=== PATIENT | female | born 1935 | race Caucasian/White ===

== ENCOUNTER 2016-09-16 10:51 | Emergency (ER) | payer MEDICARE, BC, MEDICAID ==
[2016-09-16 11:15] VITALS: BP 162/72
[2016-09-16] MEDS ORDERED: Take Home: Ciprofloxacin 500 MG Tab, 2 Tab Pack PO ONE (11:24)
[2016-09-16] MEDS ORDERED: Take Home: Ciprofloxacin 500 MG Tab, 2 Tab Pack ONE (12:06)
--- NOTE | 2016-09-17 00:23 | ER ---
Date of Service: 09/16/2016 SUBJECTIVE: Chely presented to the emergency room with complaints of dysuria. The patient states that she has been experiencing this discomfort since yesterday. She states that she is also experiencing some low back pain. She states she has not been experiencing any fever or chills. No nausea or vomiting. She states that she does have a history of recurrent urinary tract infections. PAST MEDICAL HISTORY: 1. Recurrent UTI. 2. Hyperlipidemia. 3. Hypertension. 4. Diverticulosis. 5. Osteoporosis. 6. GERD. 7. Coronary artery disease. 8. Anxiety and depression. ALLERGIES: Sulfa, atorvastatin, and venlafaxine. MEDICATIONS: 1. Wellbutrin XL. 2. Simvastatin. 3. MiraLAX. 4. [place]-3 fish oil. 5. Nitro-Dur. 6. Toprol-XL. 7. Synthroid. 8. Furosemide. 9. Colace. 10.Adderall. 11.Prolia. 12.Cymbalta. 13.Vitamin B12. 14.Vitamin D3. 15.Calcium carbonate. 16.Aspirin. REVIEW OF SYSTEMS: General: No fever, chills, weakness, chest pain, or shortness of breath. Please see history of present illness. PHYSICAL EXAMINATION: General: This is an 80-year-old female patient, in no acute distress. Vital Signs: Blood pressure is 162/72, heart rate 60, temperature is 35.8, respiratory rate 16, O2 saturations 95%. Skin: Warm, pink, and dry. HEENT: Mouth, oral mucosa is moist. Lungs: Clear to auscultation. Heart: Regular rate and rhythm. Abdomen: Soft, nontender. There is no hepatosplenomegaly noted. There is no masses noted. Extremities: Without edema. Neurologic: The patient is alert and oriented, answers all questions appropriately. The patient's speech is fluent. Her gait is within normal limits. LABORATORY DATA: Urinalysis was obtained. She did have evidence of a small leukocyte esterase in her urine. She was negative for nitrites. Specific gravity was 1.015. She did have 100 protein, negative glucose and ketones, as well as bilirubin. ASSESSMENT: Urinary tract infection. PLAN: The patient was started on Cipro 500 mg 1 twice daily for 5 days. She was given stock from here in the hospital to get started today. Drink plenty of fluids. Follow up in the clinic in the next 10 to 14 days to ensure resolution of the infection. All questions were answered. MWK: 09/17/2016 00:03:35 MODL: 09/17/2016 00:15:01 /[id number]
--- NOTE | 2016-09-17 10:32 | ER ---
Date of Service: 09/16/2016 SUBJECTIVE: Chely presents emergency room with complaints of dysuria. She states that she began experiencing this early symptoms last evening. She states that she is also experiencing some low back pain. She states that the symptoms are similar to what she has experienced when she has had UTIs in the past. She states her last urinary tract infection was approximately 2 months ago. She states she is not experiencing any fever or chills. No nausea or vomiting. PAST MEDICAL HISTORY: 1. Frequent urinary tract infections. 2. Hyperlipidemia. 3. Hypertension. 4. Diverticulosis. 5. Osteoporosis. 6. GERD. 7. Coronary artery disease. 8. Anxiety. 9. Depression. 10.Chronic fatigue syndrome. 11.Diastolic CHF. 12.Hypothyroidism. 13.Lumbar stenosis. ALLERGIES: 1. Sulfa. 2. Atorvastatin. 3. Venlafaxine. REVIEW OF SYSTEMS: General: No fever or chills. HEENT: No sore throat, rhinorrhea, or congestion. Respiratory: No shortness of breath. Cardiac: Denies any substernal chest pain. No jaw, arm, neck, or back pain. GI: No nausea, vomiting, or diarrhea. No melena, hematochezia, or hematemesis. : Positive for dysuria and frequency as well as low back pain. PHYSICAL EXAMINATION: General: This is an 80-year-old female patient, in no acute distress. Vital Signs: Blood pressure is 162/72, heart rate is 60, temperature is 35.8, respiratory rate 16, O2 saturations 95%. Skin: Warm, pink, and dry. HEENT: Mouth, oral mucosa is moist. Lungs: Clear to auscultation. Heart: Regular rate and rhythm. Back: No CVA tenderness. Abdomen: Soft, nontender. Remainder of her physical examination is within normal limits. LABORATORY DATA: Urinalysis revealed moderate occult blood, trace of leukocyte esterase, specific gravity is 1.015. Negative for glucose and ketones as well as nitrates and bilirubin. ASSESSMENT: Urinary tract infection. PLAN: We will start the patient on Cipro 500 mg twice daily for 5 days. I would like her to follow up with her primary care provider in 7 to 10 days to ensure resolution of the infection. Drink plenty of fluids. Tylenol and ibuprofen for discomfort. All questions were answered. Return to the emergency room if she develops any lightheadedness, weakness, fatigue, worsening discomfort. MWK: 09/16/2016 12:00:44 MODL: 09/16/2016 13:21:33 /[id number]
== END 2016-09-16 11:32 | disposition home or self-care (01) ==
LOC: VM.ED 10:51
DX: N39.0 Urinary tract infection, site not specified (principal); K21.9 Gastro-esophageal reflux disease without esophagitis; I11.0 Hypertensive heart disease with heart failure; I50.30 Unspecified diastolic (congestive) heart failure; I25.10 Atherosclerotic heart disease of native coronary artery without angina pectoris; E03.9 Hypothyroidism, unspecified; M81.0 Age-related osteoporosis without current pathological fracture; M48.06 Spinal stenosis, lumbar region; Z88.8 Allergy status to other drugs, medicaments and biological substances
CPT/HCPCS: 81003; 99283; A9270

== ENCOUNTER 2016-10-11 16:48 | Observation (INO) | payer MEDICARE, BC, MEDICAID ==
[2016-10-11] MEDS ORDERED: Sodium Chloride 0.9% 10 ML Syringe FLUSH PRN (17:13)
[2016-10-11] MEDS ORDERED: Enoxaparin 40 MG/0.4 ML Syringe SUBCUT SCH (17:15)
[2016-10-11] MEDS ORDERED: Nitroglycerin 0.4 MG Tab.SL SL PRN (17:34)
[2016-10-11] MEDS ORDERED: Polyethylene Glycol 3350 Powder 17 GM Packet PO PRN (17:34)
[2016-10-11] MEDS ORDERED: ALPRAZolam 0.25 MG Tab PO PRN (18:20)
[2016-10-11] MEDS: Calcium Carbonate/Vitamin D3 1250 MG-200 Unit Tab PO SCH (18:57)
[2016-10-11] MEDS ORDERED: Acetaminophen 325 MG Tab PO PRN (19:44)
[2016-10-11] MEDS ORDERED: Docusate Sodium 100 MG Cap PO SCH (20:00)
[2016-10-11] MEDS ORDERED: Simvastatin 40 MG Tab PO SCH (20:00)
[2016-10-11] MEDS: Cholecalciferol (Vitamin D3) 1,000 Unit Tab PO SCH (20:17)
[2016-10-11] MEDS: Ascorbic Acid 500 MG Tab PO SCH (20:17)
[2016-10-11] MEDS: Cranberry 500 MG Cap PO SCH (20:17)
[2016-10-12] MEDS ORDERED: Levothyroxine 100 MCG Tab PO SCH (07:00)
[2016-10-12] MEDS: Cholecalciferol (Vitamin D3) 1,000 Unit Tab PO SCH (07:43)
[2016-10-12] MEDS: Cranberry 500 MG Cap PO SCH (07:43)
[2016-10-12] MEDS: Calcium Carbonate/Vitamin D3 1250 MG-200 Unit Tab PO SCH (07:43)
[2016-10-12] MEDS: Ascorbic Acid 500 MG Tab PO SCH (07:43)
[2016-10-12] MEDS ORDERED: Metoprolol Succinate 25 MG Tab.ER PO SCH (08:00)
[2016-10-12] MEDS ORDERED: Cyanocobalamin (Vitamin B12) 1,000 MCG Tab PO SCH (08:00)
[2016-10-12] MEDS ORDERED: BUPROPION 300 MG PO SCH (08:00)
[2016-10-12] MEDS ORDERED: Aspirin 81 MG Tab.EC PO SCH (08:00)
[2016-10-12] MEDS ORDERED: Furosemide 20 MG Tab PO SCH (08:00)
[2016-10-12] MEDS ORDERED: Nitroglycerin 0.4 MG/HR Transdermal Patch TRDERM SCH (08:00)
[2016-10-12] MEDS ORDERED: DULoxetine 30 MG Cap PO SCH (08:00)
[2016-10-12 10:16] VITALS: BP 150/71
--- NOTE | 2016-10-15 08:23 | HP ---
CHIEF COMPLAINT: Chest pain. HISTORY OF PRESENT ILLNESS: This is an 80-year-old female with known history of coronary artery disease, status post stenting last in 2005 with stents to the LAD and RCA. She had a catheterization in 2009, which showed patent stents and a Cardiolite test in 09/2015 that was normal. She was just not feeling well since yesterday, but really she admits she has not been feeling well for quite some time. She has had a lot of sweats and sweating episodes. She had similar problems last September. She has been following with Psychiatry and some psych med changes had helped in the past year, but she is feeling poorly again. She does suffer from severe anxiety and depression. Otherwise, she was a little short of breath today. She woke up at 6:45 with chest discomfort. She states she has been having it off and on. It is really lasted all day, but when she got the aspirin and nitroglycerin in the clinic, it went away, but then it started coming back again. She was tired, but went to her PT appointment. She was sweating and just did not look good. They checked her blood pressure and it was high, but when she got to the clinic, her blood pressure was better. She did feel nauseated this morning, but does not feel nauseated now. She has otherwise not been coughing or having any fever. Otherwise, the patient has been going to PT for her back pain. We recently started Neurontin for the sweating and pain, she is not sure if it really helped. ALLERGIES: Effexor, agitation caused; Lipitor causes myalgias; sulfa causes itching. MEDICATIONS: List is reviewed. She is on Cymbalta 90 mg daily; Neurontin 100 mg at bedtime; Adderall 25 mg daily in the morning; metoprolol 25 mg daily; Prolia; levothyroxine 100 mcg daily, recent TSH normal; MiraLax as needed for constipation; nitroglycerin 0.8 patch daily; Lasix 20 mg daily; Zocor 40 mg daily; B12 1000 mcg daily; aspirin 81 mg daily; vitamin D 1000 daily; nitroglycerin 0.4 as needed for chest pain; calcium; fish oil; stool softeners and cranberry tabs. PAST MEDICAL HISTORY: Skin cancer, squamous cell to her leg and hand; coronary artery disease as above; diastolic heart failure, mild; essential hypertension; hyperlipidemia; hypothyroidism; adjustment disorder with anxiety and depression; major depressive disorder, recurrent; lumbar stenosis; previous epidural steroid injections; neck pain with central stenosis of the cervical spine as well; diverticulosis and perforation in 2014; previous history of colon polyps; GERD; history of UTIs; atrophic vaginitis; knee arthritis, status post right knee replacement; lumbar disk herniation; osteoporosis, on Prolia. PAST SURGICAL HISTORY: Otherwise, surgically she has had appendectomy; C- section; cataracts; perforated colon surgery with colostomy, then reversal; total knee replacement on the right in 2016; previous skin biopsies. FAMILY HISTORY: Mother is along with her father, he had a stroke. She had a daughter who of lung cancer. Another brother is . SOCIAL HISTORY: She is . 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 She does not smoke or drink alcohol. REVIEW OF SYSTEMS: General: No weight changes. She has felt a little chills after some sweats, but no fevers. HEENT: No sore throat or trouble swallowing. Cardiac: She has had a chest discomfort. No palpitations. She did have some leg swelling about 10 days ago, went away after a few days. Respiratory: No cough. Little shortness of breath this morning, but it has resolved. GI: She is having no nausea, vomiting, diarrhea, or constipation currently, but she did have some diarrhea earlier in the week on the and then it came back a little yesterday otherwise. Musculoskeletal: She does have some chronic back pain, no changes there. Psychiatric: She has not had any change in her moods, but admits they have not been good. Otherwise, all systems reviewed and found to be negative unless otherwise stated. PHYSICAL EXAMINATION: Vital Signs: Her temperature 96.8, pulse 86, blood pressure 134/80, respiratory rate 22, O2 93 on room air. General: She is in no acute distress. Heart: Regular rate and rhythm, S1, S2 without murmur. Carotids are 2+ without bruits. Lungs: Lung sounds are clear to auscultation bilaterally without crackles or wheezes. Abdomen: Positive bowel sounds. Soft and nontender. Extremities: Warm and dry. No edema. Mental Status: She is alert. She is orientated x3. Psych: She does look moderately anxious. Blood pressure is rechecked by myself 122/80. We did repeat a 3rd nitroglycerin, she did not feel like that helped. She said it had no sizzle. Recheck blood pressure by the nurse a few minutes later was up into the 130s and 140s. Another nitroglycerin did help relieve the pain some, but she still had mild chest pain on transfer over to the hospital. Troponin returned negative 0.017 and BNP negative at 193. Other lab work from the clinic showed her white count normal at 6.7, hemoglobin 15.6, platelets 247. BMP showed glucose 108, BUN 15, creatinine 0.68, sodium 142, potassium 3.8, chloride 103, bicarb 28. TSH again on 09/26/2016 was normal at 1.2. EKG was a normal sinus rhythm, no ST changes. X-ray reviewed, no acute infiltrates now dictating. ASSESSMENT AND PLAN: 1. Chest pain with known history of coronary artery disease. We will rule her out with serial troponins. I will repeat one in 3 hours and then 3 hours after that. If these are negative, she will not need further troponins as she has been having chest pain since about 7:00 a.m. this morning. We will place her on telemetry. We will have nitroglycerin available if needed. We will continue her home medications. We will consider outpatient stress testing. Again, there could be some component of anxiety also related to her chest pain. 2. Severe anxiety and depression. She is following with Psychiatry. At this point, due to her chest pain, I am going to hold her Adderall. 3. Essential hypertension. We will continue her home medications. 4. Chronic back pain and lumbar disk disease. We will continue her Neurontin. 5. Excessive sweating. This has been an ongoing problem for her, especially in the summer and after showering. I have recommended she drink more water and I have adjusted medications to try to help with this, this seems to be quite frustrating for her. 6. History of diastolic heart failure, stable without any exacerbation. BNP was negative. PLAN: At this point, the patient will be admitted for observation status. We will repeat troponins. She will be on Lovenox 40 mg daily for DVT prophylaxis. MKA: 10/11/2016 17:12:41 MODL: 10/12/2016 00:04:07 /[id number]
--- NOTE | 2016-10-15 08:23 | DISCH ---
PRIMARY DISCHARGE DIAGNOSES: 1. Chest pain ruled out for myocardial infarction with serial troponins x3. 2. Known anxiety and depression, on Adderall probably exacerbating her chest pain. 3. Remote history of coronary artery disease with previous stenting 10 years ago. 4. Essential hypertension with mildly elevated blood pressures. 5. Hypothyroidism. 6. Chronic diastolic heart failure stable without any exacerbation and negative proBNP. REASON FOR ADMISSION: On the date of admission, this 80-year-old female presented to the PT clinic for routine appointment. She was sweating, not feeling well. Blood pressure was 170/98. She came over to the clinic to have it checked out and did mention she was having chest pain to the nurse. Therefore, she was evaluated with an EKG, which was normal. Chest x-ray which looked okay and lab work with negative troponin and normal BNP, normal kidney function, normal blood count. The patient had received 4 nitros in the clinic, the first couple did help, but subsequent nitros did not improve her symptoms then she came over and was admitted on swing bed. She was quite anxious. She did receive Xanax around 6 to 7 p.m., it helped a lot. She felt better. She slept well and had no further chest pain after falling asleep. Otherwise, she has a known history of coronary artery disease. She was evaluated for similar symptoms with stress test last year, which was negative Cardiolite. She had already been in the clinic with some increased leg swelling, so an echo was planned soon. However, the swelling in her legs had completely resolved. Otherwise, she will see her psychiatrist this coming Saturday. They can make further decisions on restarting her Adderall. She will also continue on Xanax as needed for anxiety. In the meantime, it was instructed with her that this has abuse potential, so using small amounts for short-term is recommended and it will make her sleepy. She does also have a chronic fatigue syndrome that is one of the reasons why she is on Adderall. DISCHARGE PLANS AND INSTRUCTIONS: She will follow up with psych. She will follow up with Dr. Campbell in the clinic after her echo, we will decide if further cardiac stress testing is needed after that. She was discharged in stable condition with no chest pain for greater than 10 hours and negative troponins. She did not receive her Lovenox in the evening of admit because the lab work for creatinine was done through the clinic and was not available through telepharmacy. MKA: 10/12/2016 08:47:02 MODL: 10/13/2016 03:56:24 /[id number]
== END 2016-10-12 12:15 | disposition home or self-care (01) ==
LOC: VM.MS 16:52
PROVIDERS: ADMIT Internal Medicine; ATTEND Internal Medicine
DX: R07.9 Chest pain, unspecified (principal); F41.8 Other specified anxiety disorders; I10 Essential (primary) hypertension; E03.9 Hypothyroidism, unspecified; I50.32 Chronic diastolic (congestive) heart failure; E78.5 Hyperlipidemia, unspecified; Z79.82 Long term (current) use of aspirin; Z79.899 Other long term (current) drug therapy; Z88.2 Allergy status to sulfonamides; Z90.49 Acquired absence of other specified parts of digestive tract; Z98.890 Other specified postprocedural states; Z88.8 Allergy status to other drugs, medicaments and biological substances; Z93.3 Colostomy status; Z96.659 Presence of unspecified artificial knee joint; Z95.5 Presence of coronary angioplasty implant and graft
CPT/HCPCS: 36415; 84484; A9270; G0378; G0379

== ENCOUNTER 2017-07-18 15:34 | Emergency (ER) | payer MEDICARE, BC ==
[2017-07-18] MEDS ORDERED: Sodium Chloride 0.9% 10 ML Syringe FLUSH PRN (15:45)
[2017-07-18] MEDS: Sodium Chloride 0.9% 1,000 ML IV SCH (15:58)
[2017-07-18 16:48] LABS: CHLORIDE,CL 107 mmol/L (98-107); SODIUM,NA 140 mmol/L (136-145)
--- NOTE | 2017-07-18 17:15 | EDM.PDOC ---
ED HPI GENERAL MEDICAL PROBLEM - General Chief Complaint: Cardiovascular Problem Stated Complaint: chest pain Time Seen by Provider: 07/18/17 15:44 Source of Information: Reports: Patient History Limitations: Reports: No Limitations - History of Present Illness INITIAL COMMENTS - FREE TEXT/NARRATIVE: Patient comes in this afternoon with complaints of chest pain that started around 10 this morning. She states that throughout the course of the day she's taken 5 nitroglycerin sublingual tablets. She does have a history of coronary stents 4 about 12 years ago. She denies any stroke history. She does state that her family does have a history of blood clots. She states that the pain in her chest as substernal with some radiation to bilateral shoulders and arms. She denies any pain to her back or jaw. She does also state that it's more of a pressure. Medical history includes HTN, hyperlipidemia, diverticulosis, CAD, GERD, anxiety, depression, chronic fatigue syndrome, diastolic heart failure, hypothyroidism. She denies smoking, alcohol use, or drug use. Primary physician is Dr. Ana Campbell. Onset: Today Onset Date: 07/18/17 Onset Time: 10:00 Duration: Heavy Location: Reports: Chest Quality: Reports: Pressure Severity: Moderate Improves with: Reports: Movement Worsens with: Reports: Movement Associated Symptoms: Reports: No Other Symptoms Mid-Sternal Chest Pain Score (Numeric/FACES): 5 - Related Data Allergies Allergy/AdvReac Type Severity Reaction Status Date / Time Sulfa (Sulfonamide Allergy Hives Verified 07/18/17 16:42 Antibiotics) atorvastatin calcium AdvReac Muscle Verified 07/18/17 16:42 [From Lipitor] Aches venlafaxine HCl AdvReac Agitation Verified 07/18/17 16:42 [From Effexor] Home Meds: Home Meds DULoxetine [Cymbalta] 90 mg PO BEDTIME 11/23/13 [History] Furosemide 20 mg PO DAILY 11/23/13 [History] Metoprolol Succinate [Toprol XL] 25 mg PO DAILY 11/23/13 [History] [place]-3/DHA/Epa/Fish Oil [[place]-3 Fish Oil 1,000 MG Sfgl] 1,000 mg PO BID [History] Simvastatin 40 mg PO BEDTIME 11/23/13 [History] Cranberry Conc/Ascorbic Acid [Cranberry Plus Vitamin C Sftgl] 1 tab PO BID 10/26 [History] Denosumab [Prolia] 60 mg SQ Q180D 10/26/14 [History] Docusate Sodium [Colace] 100 mg PO DAILY 10/26/14 [History] Cholecalciferol (Vitamin D3) [Vitamin D3] 1,000 unit PO BID 04/15/15 [History] Polyethylene Glycol 3350 [MiraLAX] 1 tsp PO DAILY PRN 04/15/15 [History] Cyanocobalamin (Vitamin B-12) [Vitamin B-12] 1,000 mcg PO DAILY 09/16/16 [ History] Levothyroxine [Synthroid] 100 mcg PO ACBREAKFAST 09/16/16 [History] Aspirin [Halfprin] 81 mg PO DAILY 10/11/16 [History] Calcium Carbonate [Calcium] 600 mg PO BID 10/11/16 [History] Gabapentin [Neurontin] 100 mg PO BEDTIME 10/11/16 [History] Mupirocin Oint [Bactroban Oint] 1 applic TOP BID 10/11/16 [History] Nitroglycerin [Nitro-Dur] 0.8 mg TD DAILY 10/11/16 [History] Nitroglycerin [Nitrostat] 0.4 mg SL Q5M #20 tab.sl 10/12/16 [Rx] Magnesium Oxide 1 tab PO DAILY 07/18/17 [History] Modafinil [Provigil] 1 tab PO DAILY 07/18/17 [History] Vitamin B Complex [B Complex] 100 mg PO DAILY 07/18/17 [History] Past Medical History HEENT History: Reports: Cataract, Impaired Vision, Other (See Below) Other HEENT History: constant ringing/buzzing in ear Cardiovascular History: Reports: Angina, CAD, Heart Failure, High Cholesterol, Hypertension, Stents, Other (See Below) Respiratory History: Reports: Other (See Below) Other Respiratory History: hx of pneumonia Gastrointestinal History: Reports: Chronic Constipation, Colon Polyp, Diverticulosis, GERD, Other (See Below) Other Gastrointestinal History: hx of perforated bowel; sometimes colon bleed with diverticulits, rectal bleeding Genitourinary History: Reports: UTI, Recurrent, Other (See Below) Other Genitourinary History: hematuria 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: , Other (See Below) Musculoskeletal History: Reports: Arthritis, Back Pain, Chronic, Osteoarthritis , Osteoporosis Neurological History: Reports: Headaches, Chronic, Vertigo Other Neuro History: DDD, lumbar stenosis and disc herniation, scoliosis Psychiatric History: Reports: Anxiety, Depression, Other (See Below) Other Psychiatric History: History of psychiatric care Endocrine/Metabolic History: Reports: Hypothyroidism Other Endocrine/Metabolic History: CHRONIC FATIGUE Hematologic History: Reports: None Immunologic History: Reports: None Oncologic (Cancer) History: Reports: Basal Cell Carcinoma, Squamous Cell Carcinoma, Other (See Below) Dermatologic History: Reports: Other (See Below) Other Dermatologic History: BASAL CELL CARCINOMA - Past Surgical History Head Surgeries/Procedures: Reports: None HEENT Surgical History: Reports: None, Cataract Surgery Cardiovascular Surgical History: Reports: Coronary Artery Stent, Other (See Below) GI Surgical History: Reports: Appendectomy, Colonoscopy, Other (See Below) Female Surgical History: Reports: Section Endocrine Surgical History: Reports: None Musculoskeletal Surgical History: Reports: Knee Replacement, Other (See Below) Dermatological Surgical History: Reports: Skin Biopsy ED ROS GENERAL - Review of Systems Review Of Systems: See Below Constitutional: Reports: No Symptoms HEENT: Reports: No Symptoms Respiratory: Reports: No Symptoms Cardiovascular: Reports: Chest Pain Endocrine: Reports: No Symptoms GI/Abdominal: Reports: No Symptoms : Reports: No Symptoms Musculoskeletal: Reports: No Symptoms Skin: Reports: No Symptoms Neurological: Reports: No Symptoms Psychiatric: Reports: No Symptoms Hematologic/Lymphatic: Reports: No Symptoms Immunologic: Reports: No Symptoms ED EXAM, GENERAL - Physical Exam Exam: See Below Exam Limited By: No Limitations General Appearance: Alert, WD/WN, Mild Distress Eye Exam: Bilateral Eye: EOMI, Normal Inspection, PERRL Ears: Normal TMs Nose: Normal Inspection, Normal Mucosa, No Blood Throat/Mouth: Normal Inspection, Normal Lips, Normal Teeth, Normal Gums, Normal Oropharynx, Normal Voice, No Airway Compromise Head: Atraumatic, Normocephalic Neck: Normal Inspection, Supple, Non-Tender, Full Range of Motion Respiratory/Chest: No Respiratory Distress, Lungs Clear, Normal Breath Sounds, No Accessory Muscle Use, Chest Non-Tender Cardiovascular: Normal Peripheral Pulses, Regular Rate, Rhythm, No Edema, No Gallop, No JVD, No Murmur, No Rub Peripheral Pulses: 2+: Posterior Tibial (L), Posterior Tibial (R), Dorsalis Pedis (L), Dorsalis Pedis (R) GI/Abdominal: Normal Bowel Sounds, Soft, Non-Tender, No Organomegaly, No Distention, No Abnormal Bruit, No Mass Back Exam: Normal Inspection, Full Range of Motion, NT Extremities: Normal Inspection, Normal Range of Motion, Non-Tender, Normal Capillary Refill, No Pedal Edema Neurological: Alert, Oriented, CN II-XII Intact, Normal Cognition, Normal Gait, Normal Reflexes, No Motor/Sensory Deficits Psychiatric: Normal Affect, Anxious Skin Exam: Warm, Dry, Intact, Normal Color, No Rash Lymphatic: No Adenopathy Course - Vital Signs Last Recorded V/S: Last Vital Signs Temp 36.6 C 07/18/17 15:40 Pulse 71 07/18/17 15:40 Resp 16 07/18/17 15:40 BP 148/82 H 07/18/17 15:40 Pulse Ox 95 07/18/17 15:40 - Orders/Labs/Meds Orders: Active Orders 24 hr Category Date Time Status EKG Documentation Completion [RC] ROUTINE Care 07/18/17 15:45 Active Chest 1V Frontal [CR] Stat Exams 07/18/17 15:45 Taken C-REACTIVE PROTEIN [CHEM] Stat Lab 07/18/17 15:45 Ordered CBC WITH AUTO DIFF [HEME] Stat Lab 07/18/17 15:45 Ordered COMPREHENSIVE METABOLIC PN,CMP [CHEM] Stat Lab 07/18/17 15:45 Ordered INR,PT,PROTHROMBIN TIME [COAG] Stat Lab 07/18/17 15:45 Ordered MAGNESIUM [CHEM] Stat Lab 07/18/17 15:45 Ordered PHOSPHORUS [CHEM] Stat Lab 07/18/17 15:45 Ordered PRO B-TYPE NATRIUR PEPT,BNPPRO [CHEM] Routine Lab 07/18/17 15:45 Ordered TROPONIN I [CHEM] Stat Lab 07/18/17 15:45 Ordered TSH ULTRASENSITIVE [CHEM] Stat Lab 07/18/17 15:45 Ordered Sodium Chloride 0.9% [Normal Saline] 1,000 ml Med 07/18/17 15:45 Active IV ASDIRECTED Sodium Chloride 0.9% [Saline Flush] Med 07/18/17 15:45 Active 10 ml FLUSH ASDIRECTED PRN Saline Lock Insert [OM.PC] Routine Oth 07/18/17 15:45 Ordered Medication Orders Sodium Chloride (Normal Saline) 1,000 mls @ 100 mls/hr IV ASDIRECTED MO[place]STO Last Admin: 07/18/17 15:58 Dose: 100 mls/hr Sodium Chloride (Saline Flush) 10 ml FLUSH ASDIRECTED PRN PRN Reason: Keep Vein Open Meds: Medications Generic Name Dose Route Start Last Admin Trade Name Freq PRN Reason Stop Dose Admin Sodium Chloride 1,000 mls @ 100 mls/hr 07/18/17 15:45 07/18/17 15:58 Normal Saline IV 100 mls/hr ASDIRECTED MO[place]STO Administration Sodium Chloride 10 ml 07/18/17 15:45 Saline Flush FLUSH ASDIRECTED PRN Keep Vein Open - Radiology Interpretation Free Text/Narrative:: X-ray report shows no acute cause of chest pain - Re-Assessments/Exams Free Text/Narrative Re-Assessment/Exam: 07/18/17 17:35 labs are negative for acute cardiac ischemia. 07/18/17 19:42 Elevated d-dimer, chest CTA negative for pulmonary emboli Departure - Departure Time of Disposition: 19:42 Disposition: Home, Self-Care 01 Condition: Good Clinical Impression: Pressure in chest Instructions: Nonspecific Chest Pain, [id number] Referrals: Ana Campbell, DO [Primary Care Provider] - Additional Instructions: Please follow up with your primary doctor as needed. Make sure to keep your cardiology appointment you have scheduled. The CT did show some areas on your spleen that should have follow up images. Visit with your provider regarding when and how often you should do this. All labs and work ups tonight were negative for heart attack and pulmonary embolus. If you have any additional symptoms make sure to return to the ER. Please call if you have any questions or concerns. - Problem List & Annotations (1) Pressure in chest SNOMED Code(s): 469677000 Code(s): R07.89 - OTHER CHEST PAIN Status: Acute Priority: Medium Current Visit: Yes - Problem List Review Problem List Initiated/Reviewed/Updated: Yes - My Orders Last 24 Hours: My Active Orders 07/18/17 15:45 EKG Documentation Completion [RC] ROUTINE Chest 1V Frontal [CR] Stat C-REACTIVE PROTEIN [CHEM] Stat CBC WITH AUTO DIFF [HEME] Stat COMPREHENSIVE METABOLIC PN,CMP [CHEM] Stat INR,PT,PROTHROMBIN TIME [COAG] Stat MAGNESIUM [CHEM] Stat PHOSPHORUS [CHEM] Stat PRO B-TYPE NATRIUR PEPT,BNPPRO [CHEM] Routine TROPONIN I [CHEM] Stat TSH ULTRASENSITIVE [CHEM] Stat Sodium Chloride 0.9% [Normal Saline] 1,000 ml IV ASDIRECTED Sodium Chloride 0.9% [Saline Flush] 10 ml FLUSH ASDIRECTED PRN Saline Lock Insert [OM.PC] Routine - Assessment/Plan Last 24 Hours: My Active Orders 07/18/17 15:45 EKG Documentation Completion [RC] ROUTINE Chest 1V Frontal [CR] Stat C-REACTIVE PROTEIN [CHEM] Stat CBC WITH AUTO DIFF [HEME] Stat COMPREHENSIVE METABOLIC PN,CMP [CHEM] Stat INR,PT,PROTHROMBIN TIME [COAG] Stat MAGNESIUM [CHEM] Stat PHOSPHORUS [CHEM] Stat PRO B-TYPE NATRIUR PEPT,BNPPRO [CHEM] Routine TROPONIN I [CHEM] Stat TSH ULTRASENSITIVE [CHEM] Stat Sodium Chloride 0.9% [Normal Saline] 1,000 ml IV ASDIRECTED Sodium Chloride 0.9% [Saline Flush] 10 ml FLUSH ASDIRECTED PRN Saline Lock Insert [OM.PC] Routine Assessment:: atypical chest pain Plan: Please follow up with your primary doctor as needed. Make sure to keep your cardiology appointment you have scheduled. The CT did show some areas on your spleen that should have follow up images. Visit with your provider regarding when and how often you should do this. All labs and work ups tonight were negative for heart attack and pulmonary embolus. If you have any additional symptoms make sure to return to the ER. Please call if you have any questions or concerns.
[2017-07-18] MEDS: methylPREDNISolone Sodium Succinate 125 MG/2 ML SDV IVPUSH ONE (17:18)
[2017-07-18] MEDS: GI Cocktail Oral Solution 30 ML PO ONE (17:18)
[2017-07-18] MEDS: Iopamidol 612 MG/ML 100 ML Bottle IVPUSH ONE (18:41)
[2017-07-18] MEDS: Aspirin 81 MG Tab.Chew PO ONE (18:53)
[2017-07-18 19:38] VITALS: BP 182/97
== END 2017-07-18 19:45 | disposition home or self-care (01) ==
LOC: VM.ED 15:34
DX: R07.9 Chest pain, unspecified (principal); I11.0 Hypertensive heart disease with heart failure; I50.9 Heart failure, unspecified; Z88.2 Allergy status to sulfonamides; Z88.8 Allergy status to other drugs, medicaments and biological substances; Z79.82 Long term (current) use of aspirin; Z79.899 Other long term (current) drug therapy
CPT/HCPCS: 71045; 71275; 80053; 83735; 83880; 84100; 84443; 84484; 85025; 85379; 85610; 86140; 93005; 96361; 96374; 99285; A9270; J2930; J7030; Q9967

== ENCOUNTER 2017-07-30 09:23 | Emergency (ER) | payer MEDICARE, BC ==
[2017-07-30] MEDS ORDERED: Morphine 2 MG/ML Syringe IM ONE (09:56)
--- NOTE | 2017-07-30 09:58 | EDM.PDOC ---
ED HPI GENERAL MEDICAL PROBLEM - General Chief Complaint: Upper Extremity Injury/Pain Stated Complaint: wrist Time Seen by Provider: 07/30/17 09:32 Source of Information: Reports: Patient, Family, RN, RN Notes Reviewed History Limitations: Reports: No Limitations - History of Present Illness INITIAL COMMENTS - FREE TEXT/NARRATIVE: Patient presents to the ED at [facility] after she sustained a left wrist injury. Patient states she was walking in her house when her left foot got caught in the carpeting and caused her to fall on an outstretched hand. She denies any head injury or trauma. No LOC. She complains of left wrist injury and is unable to move the left wrist. She denies any numbness, tingling, or paresthesia to the left wrist. Onset: Today Onset Date: 07/30/17 Left Wrist Pain Score (Numeric/FACES): 10 - Related Data Allergies Allergy/AdvReac Type Severity Reaction Status Date / Time Sulfa (Sulfonamide Allergy Hives Verified 07/18/17 16:42 Antibiotics) atorvastatin calcium AdvReac Muscle Verified 07/18/17 16:42 [From Lipitor] Aches venlafaxine HCl AdvReac Agitation Verified 07/18/17 16:42 [From Effexor] Home Meds: Home Meds DULoxetine [Cymbalta] 90 mg PO BEDTIME 11/23/13 [History] Furosemide 20 mg PO DAILY 11/23/13 [History] Metoprolol Succinate [Toprol XL] 25 mg PO DAILY 11/23/13 [History] [place]-3/DHA/Epa/Fish Oil [[place]-3 Fish Oil 1,000 MG Sfgl] 1,000 mg PO BID [History] Simvastatin 40 mg PO BEDTIME 11/23/13 [History] Cranberry Conc/Ascorbic Acid [Cranberry Plus Vitamin C Sftgl] 1 tab PO BID 10/26 [History] Denosumab [Prolia] 60 mg SQ Q180D 10/26/14 [History] Docusate Sodium [Colace] 100 mg PO DAILY 10/26/14 [History] Cholecalciferol (Vitamin D3) [Vitamin D3] 1,000 unit PO BID 04/15/15 [History] Polyethylene Glycol 3350 [MiraLAX] 1 tsp PO DAILY PRN 04/15/15 [History] Cyanocobalamin (Vitamin B-12) [Vitamin B-12] 1,000 mcg PO DAILY 09/16/16 [ History] Levothyroxine [Synthroid] 100 mcg PO ACBREAKFAST 09/16/16 [History] Aspirin [Halfprin] 81 mg PO DAILY 10/11/16 [History] Calcium Carbonate [Calcium] 600 mg PO BID 10/11/16 [History] Gabapentin [Neurontin] 100 mg PO BEDTIME 10/11/16 [History] Mupirocin Oint [Bactroban Oint] 1 applic TOP BID 10/11/16 [History] Nitroglycerin [Nitro-Dur] 0.8 mg TD DAILY 10/11/16 [History] Nitroglycerin [Nitrostat] 0.4 mg SL Q5M #20 tab.sl 10/12/16 [Rx] Magnesium Oxide 1 tab PO DAILY 07/18/17 [History] Modafinil [Provigil] 1 tab PO DAILY 07/18/17 [History] Vitamin B Complex [B Complex] 100 mg PO DAILY 07/18/17 [History] Past Medical History HEENT History: Reports: Cataract, Impaired Vision, Other (See Below) Other HEENT History: constant ringing/buzzing in ear Cardiovascular History: Reports: Angina, CAD, Heart Failure, High Cholesterol, Hypertension, Stents, Other (See Below) Respiratory History: Reports: Other (See Below) Other Respiratory History: hx of pneumonia Gastrointestinal History: Reports: Chronic Constipation, Colon Polyp, Diverticulosis, GERD, Other (See Below) Other Gastrointestinal History: hx of perforated bowel; sometimes colon bleed with diverticulits, rectal bleeding Genitourinary History: Reports: UTI, Recurrent, Other (See Below) Other Genitourinary History: hematuria 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: , Other (See Below) Musculoskeletal History: Reports: Arthritis, Back Pain, Chronic, Osteoarthritis , Osteoporosis Neurological History: Reports: Headaches, Chronic, Vertigo Other Neuro History: DDD, lumbar stenosis and disc herniation, scoliosis Psychiatric History: Reports: Anxiety, Depression, Other (See Below) Other Psychiatric History: History of psychiatric care Endocrine/Metabolic History: Reports: Hypothyroidism Other Endocrine/Metabolic History: CHRONIC FATIGUE Hematologic History: Reports: None Immunologic History: Reports: None Oncologic (Cancer) History: Reports: Basal Cell Carcinoma, Squamous Cell Carcinoma, Other (See Below) Dermatologic History: Reports: Other (See Below) Other Dermatologic History: BASAL CELL CARCINOMA - Past Surgical History Head Surgeries/Procedures: Reports: None HEENT Surgical History: Reports: None, Cataract Surgery Cardiovascular Surgical History: Reports: Coronary Artery Stent, Other (See Below) GI Surgical History: Reports: Appendectomy, Colonoscopy, Other (See Below) Female Surgical History: Reports: Section Endocrine Surgical History: Reports: None Musculoskeletal Surgical History: Reports: Knee Replacement, Other (See Below) Dermatological Surgical History: Reports: Skin Biopsy Social & Family History - Tobacco Use Smoking Status *Q: Unknown Ever Smoked Review of Systems - Review of Systems Review Of Systems: See Below Constitutional: Denies: Fever, Weakness Eyes: Reports: No Symptoms Respiratory: Denies: Shortness of Breath Cardiovascular: Denies: Chest Pain Musculoskeletal: Reports: Arm Pain, Joint Pain, Joint Swelling Skin: Reports: No Symptoms Neurological: Reports: No Symptoms. Denies: Dizziness, Numbness, Paresthesia, Tingling ED EXAM, GENERAL - Physical Exam Exam: See Below Exam Limited By: No Limitations General Appearance: Alert, No Apparent Distress Eye Exam: Bilateral Eye: EOMI, Normal Inspection, PERRL Head: Atraumatic, Normocephalic Neck: Supple Respiratory/Chest: No Respiratory Distress, Lungs Clear, Normal Breath Sounds Cardiovascular: Normal Peripheral Pulses, Regular Rate, Rhythm Peripheral Pulses: 2+: Radial (L), Radial (R) Extremities: Joint Swelling, Arm Pain, Limited Range of Motion Neurological: Alert, Oriented Skin Exam: Warm, Dry, Intact, Normal Color Course - Vital Signs Last Recorded V/S: Last Vital Signs Temp 36.0 C 07/30/17 09:23 Pulse 65 07/30/17 09:23 Resp 18 07/30/17 09:23 BP 180/75 H 07/30/17 09:23 Pulse Ox 95 07/30/17 09:23 - Orders/Labs/Meds Orders: Active Orders 24 hr Category Date Time Status Wrist Comp Min 3V Lt [CR] Stat Exams 07/30/17 09:41 Ordered Meds: Medications Discontinued Medications Generic Name Dose Route Start Last Admin Trade Name Freq PRN Reason Stop Dose Admin Morphine Sulfate 2 mg 07/30/17 09:56 07/30/17 10:05 Morphine IM 07/30/17 09:57 2 mg ONETIME ONE Administration - Radiology Interpretation Free Text/Narrative:: Wrist, Left 3V: Complex distal left radial and ulnar fractures See scanned report in EMR. Departure - Departure Time of Disposition: 10:37 Disposition: DC/Tfer to Acute Hospital 02 Condition: Good Clinical Impression: Distal radius fracture, left Qualifiers: Encounter type: initial encounter Fracture type: closed Fracture morphology: unspecified fracture morphology Qualified Code(s): S52.502A - Unspecified fracture of the lower end of left radius, initial encounter for closed fracture Fracture of ulnar styloid Qualifiers: Encounter type: initial encounter Fracture type: closed Fracture alignment: nondisplaced Laterality: left Qualified Code(s): S52.615A - Nondisplaced fracture of left ulna styloid process, initial encounter for closed fracture - Discharge Information Forms: Interfacility Transfer EMTALA ED Communication - ED Communication Date/Time Date: 07/30/17 Time Called: 10:13 - Discussed Case With (1) Discussed Case With (1): Outpatient Provider (Dr. Cam, Hand Surgeon, [facility] and Dr. Locke, ED Provider.) - Conversation Summary Admitting Provider Agreed to Patient's Admission: Yes Patient Aware of Amendments fo Care Plan: Yes - Problem List Review Problem List Initiated/Reviewed/Updated: Yes - My Orders Last 24 Hours: My Active Orders 07/30/17 09:41 Wrist Comp Min 3V Lt [CR] Stat - Assessment/Plan Last 24 Hours: My Active Orders 07/30/17 09:41 Wrist Comp Min 3V Lt [CR] Stat Assessment:: Complex distal left radial and ulnar fractures Plan: Case discussed with Dr. Cam and Dr. Locke, [facility]. Patient will need a reduction of the fractures. Providers requested the patient be sent to the ER at [facility]. Patient will travel via private vehicle. Patient's daughter will assist with transportation.
[2017-07-30 10:23] VITALS: BP 129/69
[2017-07-30] MEDS ORDERED: Sodium Chloride 0.9% 10 ML Syringe FLUSH PRN (10:52)
== END 2017-07-30 10:55 | disposition short-term general hospital (02) ==
LOC: VM.ED 09:23
DX: S52.502A Unspecified fracture of the lower end of left radius, initial encounter for closed fracture (principal); S52.615A Nondisplaced fracture of left ulna styloid process, initial encounter for closed fracture; E78.00 Pure hypercholesterolemia, unspecified; I10 Essential (primary) hypertension; E03.9 Hypothyroidism, unspecified; Z88.2 Allergy status to sulfonamides; Z88.8 Allergy status to other drugs, medicaments and biological substances; Z79.899 Other long term (current) drug therapy; Z79.82 Long term (current) use of aspirin; W19.XXXA Unspecified fall, initial encounter
CPT/HCPCS: 73110; 96372; 99283; 99284; J2270

== ENCOUNTER 2018-08-02 11:27 | Emergency (ER) | payer MEDICARE, BC ==
[2018-08-02 11:58] VITALS: BP 133/78
--- NOTE | 2018-08-14 10:01 | EDM.PDOC ---
ED HPI GENERAL MEDICAL PROBLEM - General Chief Complaint: Genitourinary Problem Stated Complaint: BLADDER INFECTION Time Seen by Provider: 08/02/18 11:40 Source of Information: Reports: Patient History Limitations: Reports: No Limitations - History of Present Illness INITIAL COMMENTS - FREE TEXT/NARRATIVE: Pt. presented to ER with complaints of dysuria, frequency, and urgency for approx. 2 days. Pt. states that she has a history of UTI. She denies any back or abdominal pain. No chest pain or shortness of breath. She denied any fever or chills. No chest pain or shortness of breath. She denies any weakness or lightheadedness. No nausea, vomiting or diarrhea. She does complain of some diffuse suprapubic pain but states that this is a normal symptoms for her when she has a UTI. Onset Date: 08/02/18 Location: Reports: Abdomen, Pelvis Quality: Reports: Burning Bladder Pain Score (Numeric/FACES): 3 - Related Data Allergies Allergy/AdvReac Type Severity Reaction Status Date / Time Sulfa (Sulfonamide Allergy Hives Verified 06/03/18 16:33 Antibiotics) atorvastatin calcium AdvReac Muscle Verified 06/03/18 16:33 [From Lipitor] Aches venlafaxine HCl AdvReac Agitation Verified 06/03/18 16:33 [From Effexor] Home Meds: Home Meds Furosemide 20 mg PO DAILY 11/23/13 [History] Metoprolol Succinate [Toprol XL] 50 mg PO DAILY 11/23/13 [History] Simvastatin 40 mg PO BEDTIME 11/23/13 [History] Cranberry Conc/Ascorbic Acid [Cranberry Plus Vitamin C Sftgl] 500 mg PO DAILY [History] Docusate Sodium [Colace] 100 mg PO DAILY 10/26/14 [History] Levothyroxine [Synthroid] 100 mcg PO ACBREAKFAST 09/16/16 [History] Aspirin [Halfprin] 81 mg PO DAILY 10/11/16 [History] Gabapentin [Neurontin] 100 mg PO BEDTIME 10/11/16 [History] Mupirocin Oint [Bactroban Oint] 1 applic TOP BID 10/11/16 [History] Magnesium Oxide 400 mg PO DAILY 07/18/17 [History] Modafinil [Provigil] 200 mg PO ASDIRECTED 07/18/17 [History] Desvenlafaxine Succinate [Pristiq ER] 100 mg PO DAILY 01/28/18 [History] Acetaminophen [Tylenol] 325 mg PO Q4H PRN 06/03/18 [History] Apixaban [Eliquis] 5 mg PO BID 06/03/18 [History] Cyanocobalamin (Vitamin B-12) [Vitamin B-12] 1,000 mcg PO DAILY 06/03/18 [ History] amLODIPine [Norvasc] 10 mg PO DAILY 06/03/18 [History] Cholecalciferol (Vitamin D3) [Vitamin D3] 1,000 units PO BID 08/02/18 [History] Denosumab [Prolia] 60 mg .XX ASDIRECTED 08/02/18 [History] Past Medical History HEENT History: Reports: Cataract, Impaired Vision, Other (See Below) Other HEENT History: constant ringing/buzzing in ear Cardiovascular History: Reports: Afib, Angina, CAD, Heart Failure, High Cholesterol, Hypertension, Stents, Other (See Below) Respiratory History: Reports: Other (See Below) Other Respiratory History: hx of pneumonia Gastrointestinal History: Reports: Chronic Constipation, Colon Polyp, Diverticulosis, GERD, Other (See Below) Other Gastrointestinal History: hx of perforated bowel; sometimes colon bleed with diverticulits, rectal bleeding Genitourinary History: Reports: UTI, Recurrent, Other (See Below) Other Genitourinary History: hematuria 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: , Other (See Below) Musculoskeletal History: Reports: Arthritis, Back Pain, Chronic, Osteoarthritis , Osteoporosis Neurological History: Reports: Headaches, Chronic, Vertigo Other Neuro History: DDD, lumbar stenosis and disc herniation, scoliosis Psychiatric History: Reports: Anxiety, Depression, Other (See Below) Other Psychiatric History: History of psychiatric care Endocrine/Metabolic History: Reports: Hypothyroidism Other Endocrine/Metabolic History: CHRONIC FATIGUE Hematologic History: Reports: None Immunologic History: Reports: None Oncologic (Cancer) History: Reports: Basal Cell Carcinoma, Squamous Cell Carcinoma, Other (See Below) Dermatologic History: Reports: Other (See Below) Other Dermatologic History: BASAL CELL CARCINOMA - Past Surgical History Head Surgeries/Procedures: Reports: None HEENT Surgical History: Reports: None, Cataract Surgery Cardiovascular Surgical History: Reports: Coronary Artery Stent, Other (See Below) GI Surgical History: Reports: Appendectomy, Colonoscopy, Other (See Below) Female Surgical History: Reports: Section Endocrine Surgical History: Reports: None Musculoskeletal Surgical History: Reports: Knee Replacement, Other (See Below) Dermatological Surgical History: Reports: Skin Biopsy Social & Family History - Tobacco Use Smoking Status *Q: Never Smoker - Recreational Drug Use Recreational Drug Use: No ED ROS GENERAL - Review of Systems Review Of Systems: See Below Constitutional: Reports: No Symptoms HEENT: Reports: No Symptoms Respiratory: Reports: No Symptoms Cardiovascular: Reports: No Symptoms Endocrine: Reports: No Symptoms GI/Abdominal: Reports: Abdominal Pain : Reports: Dysuria, Frequency, Urgency Musculoskeletal: Reports: No Symptoms Skin: Reports: No Symptoms Neurological: Reports: No Symptoms Psychiatric: Reports: No Symptoms Hematologic/Lymphatic: Reports: No Symptoms Immunologic: Reports: No Symptoms ED EXAM, GENERAL - Physical Exam Exam: See Below Exam Limited By: No Limitations General Appearance: Alert, WD/WN, No Apparent Distress GI/Abdominal: Soft, Non-Tender, No Organomegaly, No Distention, No Mass (Female) Exam: Deferred Back Exam: No: CVA Tenderness (L), CVA Tenderness (R) Neurological: Alert, Oriented, CN II-XII Intact, Normal Cognition, Normal Reflexes Course - Vital Signs Last Recorded V/S: Last Vital Signs Temp 36.5 C 08/02/18 11:30 Pulse 76 08/02/18 11:30 Resp 16 08/02/18 11:30 BP 133/78 08/02/18 11:30 Pulse Ox 98 08/02/18 11:30 - Orders/Labs/Meds Labs: Laboratory Tests 08/02/18 Range/Units 11:37 Urine Color Yellow (YELLOW) Urine Appearance Cloudy H (CLEAR) Urine pH 5.5 (5.0-8.0) Ur Specific [place] 1.015 Urine Protein Negative (NEGATIVE) mg/dL Urine Glucose (UA) Negative (NEGATIVE) mg/dL Urine Ketones Negative (NEGATIVE) mg/dL Urine Occult Blood Moderate H (NEGATIVE) Urine Nitrite Positive H (NEGATIVE) Urine Bilirubin Negative (NEGATIVE) Urine Urobilinogen 0.2 (0.2) EU/dL Ur Leukocyte Esterase Large H (NEGATIVE) Urine RBC Not seen (NOT SEEN) /HPF Urine WBC Semi-packed (NOT SEEN) /HPF Ur Squamous Epith Cells Few H (NEGATIVE) /HPF Urine Bacteria Few H (NEGATIVE) /HPF Urine Mucus Not seen (NEGATIVE) /LPF Departure - Departure Time of Disposition: 12:30 Disposition: Home, Self-Care 01 Condition: Good Clinical Impression: UTI, Urinary tract infectious disease - Discharge Information Instructions: Lactobacillus Oral formulations, Urinary Tract Infection, Adult, Ciprofloxacin tablets, Probiotics Forms: ED Department Discharge Additional Instructions: Cipro 250mg 1 twice daily for 7 days Drink plenty of fluids Follow-up in clinic in 7-10 days for recheck. - Assessment/Plan Plan: Cipro 250mg 1 twice daily for 7 days Drink plenty of fluids Follow-up in clinic in 7-10 days for recheck.
== END 2018-08-02 12:10 | disposition home or self-care (01) ==
LOC: VM.ED 11:27
DX: N39.0 Urinary tract infection, site not specified (principal); I11.0 Hypertensive heart disease with heart failure; I50.9 Heart failure, unspecified; I48.91 Unspecified atrial fibrillation; I25.10 Atherosclerotic heart disease of native coronary artery without angina pectoris; F41.9 Anxiety disorder, unspecified; F32.9 Major depressive disorder, single episode, unspecified; Z79.899 Other long term (current) drug therapy
CPT/HCPCS: 81001; 87086; 87088; 87186; 99283

== ENCOUNTER 2020-10-30 08:30 | Emergency (ER) | payer MEDICARE, BC, MEDICAID ==
[2020-10-30] MEDS ORDERED: Sodium Chloride 0.9% 10 ML Syringe FLUSH PRN (09:02)
--- NOTE | 2020-10-30 09:18 | EDM.PDOC ---
ED HPI GENERAL MEDICAL PROBLEM - General Stated Complaint: dysuria, abdominal pain Time Seen by Provider: 10/30/20 08:50 History Limitations: Reports: No Limitations - History of Present Illness INITIAL COMMENTS - FREE TEXT/NARRATIVE: Patient presents to the ED for llq pain, dysuria for the last 2 weeks. She initially developed nausea, llq pain and dysuria on 10/12. WEnt to the Clinic, was diagnosed with UTI and placed on macrobid. She took this and was still having llq and lower back pain so returned to the clinic. REpeat UA revealed clearing of the uti. Was told to continue current medications and treat symptoms with otc medications. She states she has been nauseated, no vomiting, no fevers but lack of appetite, and continued with llq pain, dysuria and lower back pain. No radiculopathy with the pain. taking tylenol and little relief. Pain became much worse yesterday, elected to come to the ED today, did not feel well enough for druze. 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 Other Treatments SOLAR SALES ASSOCIATE: macrobid, done for a few days - Related Data Allergies Allergy/AdvReac Type Severity Reaction Status Date / Time Sulfa (Sulfonamide Allergy Hives Verified 06/03/18 16:33 Antibiotics) atorvastatin calcium AdvReac Muscle Verified 06/03/18 16:33 [From Lipitor] Aches venlafaxine HCl AdvReac Agitation Verified 06/03/18 16:33 [From Effexor] Home Meds: Home Meds Furosemide 20 mg PO DAILY 11/23/13 [History] Metoprolol Succinate [Toprol XL] 50 mg PO DAILY 11/23/13 [History] Simvastatin 40 mg PO BEDTIME 11/23/13 [History] Cranberry Conc/Ascorbic Acid [Cranberry Plus Vitamin C Sftgl] 500 mg PO DAILY 10/26/14 [History] Docusate Sodium [Colace] 100 mg PO DAILY 10/26/14 [History] Levothyroxine [Synthroid] 100 mcg PO ACBREAKFAST 09/16/16 [History] Aspirin [Halfprin] 81 mg PO DAILY 10/11/16 [History] Gabapentin [Neurontin] 100 mg PO BEDTIME 10/11/16 [History] Mupirocin Oint [Bactroban Oint] 1 applic TOP BID 10/11/16 [History] Magnesium Oxide 400 mg PO DAILY 07/18/17 [History] Modafinil [Provigil] 200 mg PO ASDIRECTED 07/18/17 [History] Desvenlafaxine Succinate [Pristiq ER] 100 mg PO DAILY 01/28/18 [History] Acetaminophen [Tylenol] 325 mg PO Q4H PRN 06/03/18 [History] Apixaban [Eliquis] 5 mg PO BID 06/03/18 [History] Cyanocobalamin (Vitamin B-12) [Vitamin B-12] 1,000 mcg PO DAILY 06/03/18 [History] amLODIPine [Norvasc] 10 mg PO DAILY 06/03/18 [History] Cholecalciferol (Vitamin D3) [Vitamin D3] 1,000 units PO BID 08/02/18 [History] Denosumab [Prolia] 60 mg .XX ASDIRECTED 08/02/18 [History] Amoxicillin/Clavulanate K [Augmentin 875-125 MG] 1 tab PO BID 7 Days #14 tablet 10/30/20 [Rx] Bacillus Coagulans [Probiotic] 1 each PO DAILY #14 capsule. 10/30/20 [Rx] Past Medical History HEENT History: Reports: Cataract, Impaired Vision, Other (See Below) Other HEENT History: constant ringing/buzzing in ear Cardiovascular History: Reports: Afib, Angina, CAD, Heart Failure, High Cholesterol, Hypertension, Stents, Other (See Below) Respiratory History: Reports: Other (See Below) Other Respiratory History: hx of pneumonia Gastrointestinal History: Reports: Chronic Constipation, Colon Polyp, Diverticulosis, GERD, Other (See Below) Other Gastrointestinal History: hx of perforated bowel; sometimes colon bleed with diverticulits, rectal bleeding Genitourinary History: Reports: UTI, Recurrent, Other (See Below) Other Genitourinary History: hematuria 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: , Other (See Below) Musculoskeletal History: Reports: Arthritis, Back Pain, Chronic, Osteoarthritis, Osteoporosis Neurological History: Reports: Headaches, Chronic, Vertigo Other Neuro History: DDD, lumbar stenosis and disc herniation, scoliosis Psychiatric History: Reports: Anxiety, Depression, Other (See Below) Other Psychiatric History: History of psychiatric care Endocrine/Metabolic History: Reports: Hypothyroidism Other Endocrine/Metabolic History: CHRONIC FATIGUE Hematologic History: Reports: None Immunologic History: Reports: None Oncologic (Cancer) History: Reports: Basal Cell Carcinoma, Squamous Cell Carcinoma, Other (See Below) Dermatologic History: Reports: Other (See Below) Other Dermatologic History: BASAL CELL CARCINOMA - Past Surgical History Head Surgeries/Procedures: Reports: None HEENT Surgical History: Reports: None, Cataract Surgery Cardiovascular Surgical History: Reports: Coronary Artery Stent, Other (See Below) GI Surgical History: Reports: Appendectomy, Colonoscopy, Other (See Below) Female Surgical History: Reports: Section Endocrine Surgical History: Reports: None Musculoskeletal Surgical History: Reports: Knee Replacement, Other (See Below) Dermatological Surgical History: Reports: Skin Biopsy Social & Family History - Tobacco Use Tobacco Use Status *Q: Never Tobacco User - Alcohol Use Alcohol Use History: No Alcohol Use in Last Twelve Months: No - Recreational Drug Use Recreational Drug Use: No Drug Use in Last 12 Months: No ED ROS GENERAL - Review of Systems Review Of Systems: See Below Constitutional: Reports: No Symptoms. Denies: Fever, Chills, Malaise, Fatigue HEENT: Reports: No Symptoms. Denies: Rhinitis, Sinus Problem, Throat Swelling Respiratory: Reports: No Symptoms. Denies: Shortness of Breath, Cough, Sputum Cardiovascular: Reports: No Symptoms. Denies: Chest Pain, Edema, Lightheadedness, Palpitations Endocrine: Reports: No Symptoms GI/Abdominal: Reports: Abdominal Pain, Decreased Appetite, Nausea, Other (decreased stool but not constipated nor bloody or black). Denies: Constipation, Diarrhea : Reports: Dysuria. Denies: Flank Pain, Frequency Musculoskeletal: Reports: Back Pain (across the sacrum and pelvis, not reproducible) Skin: Reports: No Symptoms Neurological: Reports: No Symptoms. Denies: Confusion, Dizziness Psychiatric: Reports: No Symptoms Hematologic/Lymphatic: Reports: No Symptoms ED EXAM, GI/ABD - Physical Exam Exam: See Below Exam Limited By: No Limitations General Appearance: Alert, WD/WN, No Apparent Distress Eyes: Bilateral: Normal Appearance Ears: Normal External Exam, Normal Canal, Normal TMs Nose: Normal Inspection, Normal Mucosa, No Blood Throat/Mouth: Normal Inspection, Normal Lips, Normal Oropharynx, Normal Voice, No Airway Compromise Head: Atraumatic, Normocephalic Neck: Normal Inspection, Supple, Non-Tender, Full Range of Motion Respiratory/Chest: No Respiratory Distress, Lungs Clear, Normal Breath Sounds, No Accessory Muscle Use, Chest Non-Tender Cardiovascular: Normal Peripheral Pulses, Regular Rate, Rhythm, No Edema, No Murmur, No Rub GI/Abdominal Exam: Normal Bowel Sounds, Soft, No Organomegaly, No Abnormal Bruit, No Mass, Tender (minimal llq). No: Rigid, Rebound Back Exam: Normal Inspection, Full Range of Motion, Other (no reproducible pain to palpation, no lesions or rashes, can ambulate well, rolls over by self without problems ). No: CVA Tenderness (L), CVA Tenderness (R) Extremities: Normal Inspection, Normal Range of Motion Neurological: Alert, Oriented, Normal Cognition Course - Vital Signs Last Recorded V/S: Last Vital Signs Temp 36.7 C 10/30/20 09:45 Pulse 80 10/30/20 09:45 Resp 18 10/30/20 09:45 BP 183/75 H 10/30/20 09:45 Pulse Ox 94 L 10/30/20 09:45 - Orders/Labs/Meds Orders: Active Orders 24 hr Category Date Time Status CULTURE URINE [RM] Stat Lab 10/30/20 08:52 Received Sodium Chloride 0.9% [Saline Flush] Med 10/30/20 09:02 Active 10 ml FLUSH ASDIRECTED PRN Peripheral IV Insertion Adult [OM.PC] Routine Oth 10/30/20 09:02 Ordered Medication Orders Sodium Chloride (Sodium Chloride 0.9% 10 Ml Syringe) 10 ml FLUSH ASDIRECTED PRN PRN Reason: Keep Vein Open Labs: Laboratory Tests 10/30/20 10/30/20 10/30/20 Range/Units 08:52 09:07 09:07 WBC 5.5 (4.0-10.0) x10^3/uL RBC 4.53 (4.00-5.50) x10^6/uL Hgb 14.8 (12.0-16.0) g/dL Hct 44.0 (33.0-47.0) % MCV 97.1 H (78.0-93.0) fL MCH 32.7 H (26.0-32.0) pg MCHC 33.6 (32.0-36.0) g/dL RDW Coeff of Mimi 12.0 (10.0-15.0) % Plt Count 240 (130-400) x10^3/uL Immature Gran % (Auto) 0.20 (0.00-0.43) % Neut % (Auto) 66.4 (50.0-80.0) % Lymph % (Auto) 22.8 L (25.0-50.0) % Todd % (Auto) 7.6 (2.0-11.0) % Eos % (Auto) 2.5 (0.0-4.0) % Baso % (Auto) 0.5 (0.2-1.2) % Neut # (Auto) 3.7 (1.8-7.7) x10^3/uL Lymph # (Auto) 1.3 (1.0-4.8) x10^3/uL Todd # (Auto) 0.4 (0.0-0.8) x10^3/uL Eos # (Auto) 0.1 (0.0-0.5) x10^3/uL Baso # (Auto) 0.0 (0.0-0.2) x10^3/uL Immature Gran # (Auto) 0.01 (0.00-0.07) x10^3/uL Sodium 143 (136-145) mmol/L Potassium 3.0 L (3.5-5.1) mmol/L Chloride 103 (98-107) mmol/L Carbon Dioxide 34 H (21-32) mmol/L Anion Gap 9.0 (5-15) mmol/L BUN 10 (7-18) mg/dL Creatinine 0.8 (0.55-1.02) mg/dL Est Cr Clr Drug Dosing TNP Estimated GFR (MDRD) > 60 Glucose 116 H (70-99) mg/dL Lactic Acid (0.4-2.0) mmol/L Calcium 8.1 L (8.5-10.1) mg/dL Corrected Calcium 8.8 (8.5-10.1) mg/dL Total Bilirubin 0.4 (0.2-1.0) mg/dL AST 18 (15-37) U/L ALT 22 (14-59) U/L Alkaline Phosphatase 82 (46-116) U/L C-Reactive Protein 2.9 H (<=0.9) mg/dL Total Protein 6.3 L (6.4-8.2) g/dL Albumin 3.1 L (3.4-5.0) g/dL Globulin 3.2 Albumin/Globulin Ratio 0.97 Urine Color Light yellow (YELLOW) Urine Appearance Slightly cloudy H (CLEAR) Urine pH 7.0 (5.0-8.0) Ur Specific [place] 1.015 Urine Protein Negative (NEGATIVE) mg/dL Urine Glucose (UA) Negative (NEGATIVE) mg/dL Urine Ketones Negative (NEGATIVE) mg/dL Urine Occult Blood Moderate H (NEGATIVE) Urine Nitrite Negative (NEGATIVE) Urine Bilirubin Negative (NEGATIVE) Urine Urobilinogen 0.2 (0.2) EU/dL Ur Leukocyte Esterase Moderate H (NEGATIVE) U Hyaline Cast (Auto) Rare Urine RBC 10-20 H (NOT SEEN) /HPF Urine WBC 30-40 H (NOT SEEN) /HPF Ur Squamous Epith Cells Many H (NOT SEEN) /HPF Urine Bacteria Moderate H (NOT SEEN) /HPF Urine Mucus Not seen (NOT SEEN) /LPF 10/30/20 Range/Units 09:07 WBC (4.0-10.0) x10^3/uL RBC (4.00-5.50) x10^6/uL Hgb (12.0-16.0) g/dL Hct (33.0-47.0) % MCV (78.0-93.0) fL MCH (26.0-32.0) pg MCHC (32.0-36.0) g/dL RDW Coeff of Mimi (10.0-15.0) % Plt Count (130-400) x10^3/uL Immature Gran % (Auto) (0.00-0.43) % Neut % (Auto) (50.0-80.0) % Lymph % (Auto) (25.0-50.0) % Todd % (Auto) (2.0-11.0) % Eos % (Auto) (0.0-4.0) % Baso % (Auto) (0.2-1.2) % Neut # (Auto) (1.8-7.7) x10^3/uL Lymph # (Auto) (1.0-4.8) x10^3/uL Todd # (Auto) (0.0-0.8) x10^3/uL Eos # (Auto) (0.0-0.5) x10^3/uL Baso # (Auto) (0.0-0.2) x10^3/uL Immature Gran # (Auto) (0.00-0.07) x10^3/uL Sodium (136-145) mmol/L Potassium (3.5-5.1) mmol/L Chloride (98-107) mmol/L Carbon Dioxide (21-32) mmol/L Anion Gap (5-15) mmol/L BUN (7-18) mg/dL Creatinine (0.55-1.02) mg/dL Est Cr Clr Drug Dosing Estimated GFR (MDRD) Glucose (70-99) mg/dL Lactic Acid 2.1 H* (0.4-2.0) mmol/L Calcium (8.5-10.1) mg/dL Corrected Calcium (8.5-10.1) mg/dL Total Bilirubin (0.2-1.0) mg/dL AST (15-37) U/L ALT (14-59) U/L Alkaline Phosphatase (46-116) U/L C-Reactive Protein (<=0.9) mg/dL Total Protein (6.4-8.2) g/dL Albumin (3.4-5.0) g/dL Globulin Albumin/Globulin Ratio Urine Color (YELLOW) Urine Appearance (CLEAR) Urine pH (5.0-8.0) Ur Specific [place] Urine Protein (NEGATIVE) mg/dL Urine Glucose (UA) (NEGATIVE) mg/dL Urine Ketones (NEGATIVE) mg/dL Urine Occult Blood (NEGATIVE) Urine Nitrite (NEGATIVE) Urine Bilirubin (NEGATIVE) Urine Urobilinogen (0.2) EU/dL Ur Leukocyte Esterase (NEGATIVE) U Hyaline Cast (Auto) Urine RBC (NOT SEEN) /HPF Urine WBC (NOT SEEN) /HPF Ur Squamous Epith Cells (NOT SEEN) /HPF Urine Bacteria (NOT SEEN) /HPF Urine Mucus (NOT SEEN) /LPF Meds: Medications Generic Name Dose Route Start Last Admin Trade Name Freq PRN Reason Stop Dose Admin Sodium Chloride 10 ml 10/30/20 09:02 Sodium Chloride 0.9% 10 Ml Syringe FLUSH ASDIRECTED PRN Keep Vein Open Discontinued Medications Generic Name Dose Route Start Last Admin Trade Name Alida PRN Reason Stop Dose Admin Ceftriaxone Sodium 1 gm 10/30/20 09:43 10/30/20 10:04 Ceftriaxone 1 Gm Vial IVPUSH 10/30/20 09:44 1 gm STAT ONE Administration Sodium Chloride 1,000 mls @ 999 mls/hr 10/30/20 09:37 10/30/20 09:40 Normal Saline IV 10/30/20 10:37 999 mls/hr ONETIME ONE Administration Iopamidol 100 ml 10/30/20 10:21 10/30/20 10:46 Iopamidol 612 Mg/Ml 100 Ml Bottle IVPUSH 10/30/20 10:22 100 ml ONETIME ONE Administration Potassium Chloride 40 meq 10/30/20 10:12 Potassium Chloride 20 Meq Tab.Er PO 10/30/20 10:13 ONETIME ONE - Radiology Interpretation Free Text/Narrative:: ct scan of abdomen and pelvis with IV contrast without a new acute change. residual leiomyomatous chaanges noted. hiatal hernia noted. calcified 2 cm round soft tissue density adjacent to rectum is unchanged interpreted by radiology - Re-Assessments/Exams Free Text/Narrative Re-Assessment/Exam: 10/30/20 09:07 review of her [place] chart reveals uti with leukocyte esterace and nitrite along with blood on 10/12. Culture was E coli >100,000 cfu and sensitive to all, but the annotation that macrobid should not be used due to difficulty of renal concentration. NO other labs. Is on eliquis which could be the reasoning for the blood in her urine 10/30/20 09:[address] scan with IV contast with concern for intrabdominal process. urine, labs. Offered medication, declined. 10/30/20 09:42 lactic is 2.1 but a normal WBC. Will give iv fluids 1000 ml bolus. urine is infected will give rocephin 1 gram IVP, awaiting CT 10/30/20 10:[address] now. 10/30/20 11:22 Patient is comfortable, will give PO potassium. awaiting CT results. 10/30/20 11:56 Urine is infected again. Concern for why you are having a recurrent infection and need for urology referral for possible cystoscopy and prophylactic antibiotics. Urine culture is pending. Take antibiotics as prescribed and start this tomorrow as you were given IV antibiotics here. You will be notified about needs for changes in antibiotics. Take an over the counter probiotics to help balance gut health. If you are still having abdominal pain and problems after the infection is cleared, consider colonoscopy for evaluation. start on augmentin tomorrow Call PCP tomorrow to set this up. You also have a large gallbladder, You were given information about this. Departure - Departure Time of Disposition: 11:50 Disposition: Home, Self-Care 01 Condition: Good Clinical Impression: Recurrent UTI (urinary tract infection), Abdominal pain, Hypokalemia - Discharge Information *PRESCRIPTION DRUG MONITORING PROGRAM REVIEWED*: Not Applicable *COPY OF PRESCRIPTION DRUG MONITORING REPORT IN PATIENT TAJ: Not Applicable Prescriptions: Amoxicillin/Clavulanate K [Augmentin 875-125 MG] 1 tab PO BID 7 Days #14 tablet Bacillus Coagulans [Probiotic] 1 each PO DAILY #14 capsule.dr Instructions: Urinary Tract Infection, Adult, Abdominal Pain, Adult, [id number], Hypokalemia, Gallbladder Eating Plan Additional Instructions: Urine is infected again. Concern for why you are having a recurrent infection and need for urology referral for possible cystoscopy and prophylactic antibiotics. Urine culture is pending. Take antibiotics as prescribed and start this tomorrow as you were given IV antibiotics here. You will be notified about needs for changes in antibiotics. Take an over the counter probiotics to help balance gut health. If you are still having abdominal pain and problems after the infection is cleared, consider colonoscopy for evaluation. Call PCP tomorrow to set this up. You also have a large gallbladder, You were given information about this. Sepsis Event Note (ED) - Focused Exam Vital Signs: Vital Signs Temp Pulse Resp BP Pulse Ox 10/30/20 09:45 36.7 C 80 18 183/75 H 94 L - My Orders Last 24 Hours: My Active Orders 10/30/20 08:52 CULTURE URINE [RM] Stat 10/30/20 09:02 Sodium Chloride 0.9% [Saline Flush] 10 ml FLUSH ASDIRECTED PRN Peripheral IV Insertion Adult [OM.PC] Routine - Assessment/Plan Last 24 Hours: My Active Orders 10/30/20 08:52 CULTURE URINE [RM] Stat 10/30/20 09:02 Sodium Chloride 0.9% [Saline Flush] 10 ml FLUSH ASDIRECTED PRN Peripheral IV Insertion Adult [OM.PC] Routine
[2020-10-30] MEDS ORDERED: Sodium Chloride 0.9% 1,000 ML IV ONE (09:37)
[2020-10-30 09:42] LABS: CHLORIDE,CL 103 mmol/L (98-107); SODIUM,NA 143 mmol/L (136-145)
[2020-10-30] MEDS ORDERED: cefTRIAXone 1 GM Vial IVPUSH ONE (09:43)
[2020-10-30 09:52] VITALS: BP 183/75; PULSE 80
[2020-10-30] MEDS ORDERED: Potassium Chloride 20 MEQ Tab.ER PO ONE (10:12)
[2020-10-30] MEDS ORDERED: Iopamidol 612 MG/ML 100 ML Bottle IVPUSH ONE (10:21)
--- NOTE | 2020-10-30 11:40 | CT ---
[id number] CT/CT Abdomen Pelvis W IV EXAM: CT Abdomen Pelvis W IV CLINICAL DATA: LEFT LOWER QUADRANT PAIN COMPARISON: CORRELATION IS MADE WITH JANUARY 01, 2018 FINDINGS: The liver and spleen are unremarkable. The kidneys and adrenals show no abnormality. The aorta and pancreas are within normal limits. There is no bowel distention. There is no bowel wall thickening either. There is no free fluid or free air. There is no adenopathy. The pelvis shows no mass, free fluid, abscess, inflammatory change, or adenopathy. Residual leiomyomatous changes are stable There is a moderate hiatal hernia Inhomogeneous enhancement of the spleen is stable A calcified 2 cm round soft tissue density adjacent to the rectum is unchanged IMPRESSION: NO ACUTE PROCESS. Bassam Marshall MD 10/30/20 2053 Thank you for allowing us to participate in the care of your patient.
== END 2020-10-30 12:01 | disposition home or self-care (01) ==
LOC: VM.ED 08:30
DX: N39.0 Urinary tract infection, site not specified (principal); E87.6 Hypokalemia; I48.91 Unspecified atrial fibrillation; I25.119 Atherosclerotic heart disease of native coronary artery with unspecified angina pectoris; I11.0 Hypertensive heart disease with heart failure; I50.9 Heart failure, unspecified; E78.00 Pure hypercholesterolemia, unspecified; K21.9 Gastro-esophageal reflux disease without esophagitis; Z95.5 Presence of coronary angioplasty implant and graft; Z88.2 Allergy status to sulfonamides; Z88.8 Allergy status to other drugs, medicaments and biological substances; Z79.82 Long term (current) use of aspirin; Z79.01 Long term (current) use of anticoagulants; Z79.899 Other long term (current) drug therapy
CPT/HCPCS: 74177; 80053; 81001; 83605; 85025; 86140; 87086; 87088; 87186; 96374; 99284; 99284-25; A9270-GY; J0696; J7030; Q9967